=== PATIENT | male | born 1955 | race Caucasian/White ===

== ENCOUNTER → 2025-03-09 09:14 | Outpatient (REF) | payer MEDICARE, OTHER, SELFPAY | LOC: RCS 09:14 | PROVIDERS: ATTENDING PHYSICIAN Internal Medicine | DX: I25.10 Atherosclerotic heart disease of native coronary artery without angina pectoris (principal); I25.5 Ischemic cardiomyopathy; E78.5 Hyperlipidemia, unspecified; I25.2 Old myocardial infarction | CPT/HCPCS: 93306 ==